=== PATIENT | female | born 1970 ===

== ENCOUNTER 2018-06-15 21:07 | Emergency (ER) | payer SELFPAY ==
[2018-06-15 21:08] VITALS: BMI 30.8
[2018-06-15 21:24] VITALS: BP 137/85; PULSE 93; RESP 18; TEMP 98.4; O2SAT 98
--- NOTE | 2018-06-15 22:02 | C.PDOC ---
History Of Present Illness 47 y/o female presents to the ER complaining of itchy rash that developed all over the body two days ago. She admits to being allergic to berries and she states that she might have eaten a yogurt with berries. The patient took benedryl at home with no relief. She denies any shortness of breath, chest pain , swelling or associated fever. Time Seen by Provider: 06/15/18 21:28 Chief Complaint (Nursing): Allergic Reaction History Per: Patient History/Exam Limitations: no limitations Onset/Duration Of Symptoms: Days Current Symptoms Are (Timing): Still Present Possible Cause: Food (yogurt with berries) Associated Symptoms: Skin Rash. denies: Swelling, Trouble Swallowing Home/EMS Treatment: Benadryl (at 1000) Recent travel outside of the [place]: No Past Medical History Reviewed: Historical Data, Nursing Documentation, Vital Signs Vital Signs: Last Vital Signs Temp 98.4 F 06/15/18 21:20 Pulse 93 H 06/15/18 21:20 Resp 18 06/15/18 21:20 BP 137/85 06/15/18 21:20 Pulse Ox 98 06/15/18 22:26 - Medical History PMH: Denies: Chronic Kidney Disease Surgical History: Cholecystectomy - [facility] Procedures RESECTION OF LEFT AXILLARY LYMPHATIC, OPEN APPROACH (05/29/16) RESECTION OF LEFT BREAST, OPEN APPROACH (05/29/16) Family History: States: Unknown Family Hx - Social History Hx Alcohol Use: No Hx Substance Use: No - Immunization History Hx Tetanus Toxoid Vaccination: No Hx Influenza Vaccination: No Hx Pneumococcal Vaccination: No Review Of Systems Except As Marked, All Systems Reviewed And Found Negative. Constitutional: Negative for: Fever ENT: Negative for: Throat Swelling Cardiovascular: Negative for: Chest Pain Respiratory: Negative for: Shortness of Breath Gastrointestinal: Negative for: Nausea, Vomiting Physical Exam - Physical Exam Appears: Well, Non-toxic, No Acute Distress Skin: Normal Color, Rash (scattered urticarial rash ) Head: Atraumatic, Normacephalic Eye(s): bilateral: Normal Inspection (No swelling), PERRL, EOMI Ear(s): Bilateral: Normal Oral Mucosa: Moist Tongue: Normal Appearing, No Swelling Lips: Normal Appearing, No Swelling Throat: Normal, No Erythema Neck: Normal ROM, Supple Chest: Symmetrical Cardiovascular: Rhythm Regular, No Friction Rub, No Murmur Respiratory: Normal Breath Sounds, No Rales, No Rhonchi, No Stridor, No Wheezing Gastrointestinal/Abdominal: Normal Exam, Soft, No Tenderness Extremity: Normal ROM Extremity: Bilateral: Atraumatic, Normal Color And Temperature, Normal ROM Pulses: Left Radial: Normal, Right Radial: Normal Neurological/Psych: Oriented x3, Normal Speech Gait: Steady ED Course And Treatment O2 Sat by Pulse Oximetry: 98 (RA) Pulse Ox Interpretation: Normal Medical Decision Making Medical Decision Making: Patient was given Benedryl 25 mg PO and PredniSONE 40 mg PO. The pt is stable and ready for discharge. On re-exam, the patient reports she feels well. Lungs remain CTA, airways are patent. Disposition - Disposition Referrals: [facility] [Outside] Disposition: HOME/ ROUTINE Disposition Time: 22:21 Condition: GOOD Additional Instructions: Follow up with the medical doctor within 1-2 days/clinic within 1-2 days. Return if worsened. Prescriptions: DiphenhydrAMINE [Benadryl] 25 mg PO QID #28 cap predniSONE [Prednisone] 20 mg PO BID #10 tab Instructions: Hives (DC) Forms: Invaluable (Latvian) - Clinical Impression Clinical Impression: Urticaria - PA / DITCH RIDER / Resident Statement MD/DO has reviewed & agrees with the documentation as recorded. - Scribe Statement The provider has reviewed the documentation as recorded by the Scribe (Elma Bower) All medical record entries made by the Scribe were at my direction and personally dictated by me. I have reviewed the chart and agree that the record accurately reflects my personal performance of the history, physical exam, medical decision making, and the department course for this patient. I have also personally directed, reviewed, and agree with the discharge instructions and disposition.
== END 2018-06-15 22:32 | disposition home or self-care (01) ==
LOC: C.ER 21:07 → SUPCPDRO 21:07 → C.ER 22:32
DX: L50.9 Urticaria, unspecified (principal)

== ENCOUNTER 2018-06-24 23:28 | Emergency (ER) | payer SELFPAY | END 2018-06-25 01:30 | disposition home or self-care (01) | LOC: C.ER 23:28 | DX: L50.9 Urticaria, unspecified (principal) ==

== ENCOUNTER 2019-04-07 09:21 | Outpatient (CLI) | payer OTHER | END 2019-04-07 09:22 | disposition home or self-care (01) | LOC: C.MAMMO 09:22 ==